=== PATIENT | male | born 2000 | race Caucasian/White ===

== ENCOUNTER 2025-01-28 15:34 | Emergency (ER) | payer SELFPAY ==
[2025-01-28 15:44] VITALS: BP 137/94; PULSE 112
[2025-01-28] MEDS: Diphtheria,Pertussis(Acell),Tetanus Vaccine 0.5 ML Syringe IM ONE (15:46)
== END 2025-01-28 15:48 | disposition home or self-care (01) ==
LOC: DL.ED 15:34
DX: S81.832A Puncture wound without foreign body, left lower leg, initial encounter (principal); Z23 Encounter for immunization; X58.XXXA Exposure to other specified factors, initial encounter
CPT/HCPCS: 90471; 90715; 99282-25